=== PATIENT | female | born 1980 | race Two or more races ===

== ENCOUNTER → 2017-07-20 | Emergency (ER) | payer OTHER ==
[~2017-07-20] MED LIST: BENADRYL50 MG PO; EPIPEN0.3 MG/0.3 IM; MEDROL4 MG PO
== END | disposition left against medical advice (07) ==
LOC: ER 11:03
DX: Z53.20 Procedure and treatment not carried out because of patient's decision for unspecified reasons (principal)

== ENCOUNTER 2017-08-12 05:00 | Inpatient (IN) | payer OTHER ==
[~2017-08-12] VITALS: Ht 165.1 cm; Wt 82.6 kg
[~2017-08-12 05:00] MED LIST changes: +ZYRTEC10 M3 PO
== END 2017-08-14 08:19 | disposition home or self-care (01) | DRG 419 ==
LOC: CIR.AMB 05:00 → O/R 09:36 → SURH 09:36
PROVIDERS: Specialist
PROC: BF13YZZ Fluoroscopy of Gallbladder and Bile Ducts using Other Contrast (ICD-10-PCS; 2017-08-12)
PROC: 0FT44ZZ Resection of Gallbladder, Percutaneous Endoscopic Approach (ICD-10-PCS; principal; 2017-08-12 07:00)
DX: K80.10 Calculus of gallbladder with chronic cholecystitis without obstruction (principal); K91.0 Vomiting following gastrointestinal surgery

== ENCOUNTER 2017-11-24 08:39 | Outpatient (CLI) | payer OTHER | END 2017-11-24 08:50 | disposition home or self-care (01) | LOC: SONOGRAMA 08:39 → MAMO-SONO 09:15 | DX: E04.1 Nontoxic single thyroid nodule (principal) ==

== ENCOUNTER 2018-11-20 14:58 | Outpatient (CLI) | payer OTHER | END 2018-11-20 15:03 | disposition home or self-care (01) | LOC: SONOGRAMA 14:58 | DX: E04.8 Other specified nontoxic goiter (principal) ==

== ENCOUNTER → 2018-12-31 06:00 | Outpatient (CLI) | payer OTHER | END | disposition home or self-care (01) | LOC: RAD 06:00 → ADM 11:45 → CIR.AMB 01-06 07:00 → EDSTATUS 01-06 11:45 | DX: E04.2 Nontoxic multinodular goiter (principal); Z01.810 Encounter for preprocedural cardiovascular examination ==

== ENCOUNTER 2019-09-21 10:20 | Outpatient (CLI) | payer OTHER | END 2019-09-21 10:35 | disposition home or self-care (01) | LOC: MRI 10:20 | PROVIDERS: ATTEND Physical Medicine & Rehabilitation | DX: M54.5 Low back pain (principal); M54.16 Radiculopathy, lumbar region; M41.87 Other forms of scoliosis, lumbosacral region | CPT/HCPCS: 72148 ==

== ENCOUNTER 2019-10-14 10:55 | Outpatient (CLI) | payer OTHER | END 2019-10-14 11:05 | disposition home or self-care (01) | LOC: MAMO-SONO 10:55 | PROVIDERS: ATTEND Obstetrics & Gynecology | DX: Z12.31 Encounter for screening mammogram for malignant neoplasm of breast (principal); N60.01 Solitary cyst of right breast ==

== ENCOUNTER → 2019-11-18 | Outpatient (CLI) | payer OTHER | END | disposition home or self-care (01) | LOC: MAMO-SONO 11-15 09:45 → RAD 12:29 → SONOGRAMA 12:29 → MAMO-SONO 13:15 | PROVIDERS: ATTEND Internal Medicine Endocrinology, Diabetes & Metabolism | DX: M54.2 Cervicalgia (principal); E04.2 Nontoxic multinodular goiter ==

== ENCOUNTER 2019-12-22 08:24 | Day surgery (SDC) | payer OTHER ==
[2019-12-22] MEDS ORDERED: PERCOCET 5-3251 EACH PO (13:58)
== END 2019-12-22 21:40 | disposition home or self-care (01) ==
LOC: CIR.AMB 08:24
PROVIDERS: ATTEND Surgery
DX: E04.8 Other specified nontoxic goiter (principal); Z20.828 Contact with and (suspected) exposure to other viral communicable diseases

== ENCOUNTER 2020-10-18 10:24 | Outpatient (CLI) | payer OTHER ==
[~2020-10-18 10:24] MED LIST changes: +PERCOCET 5-3251 EACH PO
== END 2020-10-18 10:46 | disposition home or self-care (01) ==
LOC: MAMO-SONO 10:24
PROVIDERS: ATTEND Obstetrics & Gynecology
DX: N60.01 Solitary cyst of right breast (principal); N60.02 Solitary cyst of left breast; Z87.898 Personal history of other specified conditions; Z12.31 Encounter for screening mammogram for malignant neoplasm of breast

== ENCOUNTER 2021-03-19 09:36 | Outpatient (CLI) | payer OTHER | END 2021-03-19 09:44 | disposition home or self-care (01) | LOC: SONOGRAMA 09:36 | PROVIDERS: ATTEND Internal Medicine Endocrinology, Diabetes & Metabolism | DX: E04.2 Nontoxic multinodular goiter (principal); E03.8 Other specified hypothyroidism; E04.8 Other specified nontoxic goiter ==

== ENCOUNTER 2024-05-28 12:56 | Outpatient (CLI) | payer OTHER | END 2024-05-28 13:06 | disposition home or self-care (01) | LOC: SONOGRAMA 12:56 | PROVIDERS: ATTEND Internal Medicine Endocrinology, Diabetes & Metabolism | DX: E04.8 Other specified nontoxic goiter (principal) ==